=== PATIENT | female | born 1995 ===

== ENCOUNTER 2017-03-29 22:29 | Inpatient (IN) ==
[2017-03-29 23:40] LABS: Basophils % 0.2 % (0.0-0.8); Eosinophils # 0.1 10*3/uL (0.0-0.87); Eosinophils % 0.9 % (0.00-10.9); Hematocrit 33.2 VOL% (35.7-47.0); Hemoglobin 11.1 GM/DL (12.0-16.0); Immature Granulocytes % 0.3 %; Immature Granulocytes Absolute 0.03 #; Lymphocytes # 1.3 10*3/uL (1.4-4.0); Mean Corpuscular HGB Conc 33.4 GM/DL (32-36); Mean Corpuscular Hemoglobin 28 PG (27-34); Mean Platelet Volume 11.7 FL (9.6-12.0); Monocytes # 0.5 10*3/uL (0.11-0.8); Monocytes % 4.9 % (1.7-12.7); Neutrophils # 8.9 10*3/uL (1.4-7.4); Neutrophils % 81.7 % (38.7-73.9); Platelet Count 251 T/CUMM (130-400); Red Cell Distribution Width 13.1 % (9.3-17.3); White Blood Count 10.9 T/CUMM (4-12)
[2017-03-30] MEDS ORDERED: ceFAZolin 1,000 MG VIAL ONE (03:54)
[2017-03-30] MEDS ORDERED: SUGAMMADEX 200 MG/2 ML VIAL IV ONE (04:29)
[2017-03-30] MEDS ORDERED: TISSUE ADHESIVE 1 EACH APPLICATOR TOP ONE (04:48)
[2017-03-30] MEDS ORDERED: ONDANSETRON 4 MG/2 ML VIAL IV PRN ×2 (05:05→05:28)
[2017-03-30] MEDS ORDERED: BISACODYL 10 MG SUPP RECTAL PRN (05:05)
[2017-03-30] MEDS ORDERED: BENZOCAINE/MENTHOL LOZENGE 18/BOX PO PRN (05:05)
[2017-03-30] MEDS ORDERED: PROPOFOL 200 MG/20 ML VIAL IV ONE (05:19)
[2017-03-30] MEDS ORDERED: SEVOFLURANE 1 UNIT/15 MINUTE INH ONE (05:19)
[2017-03-30] MEDS ORDERED: KETOROLAC 30 MG/1 ML VIAL ONE (05:20)
[2017-03-30] MEDS ORDERED: ACETAMINOPHEN 1,000 MG/100 ML VIAL IV ONE (05:20)
[2017-03-30] MEDS ORDERED: fentaNYL 100 MCG/2 ML VIAL ONE ×2 (05:20)
[2017-03-30] MEDS ORDERED: MIDAZOLAM 2 MG/2 ML VIAL ONE (05:20)
[2017-03-30] MEDS ORDERED: ROCURONIUM 100 MG/10 ML VIAL IV ONE (05:21)
[2017-03-30] MEDS ORDERED: LACTATED RINGERS 1,000 ML IV SCH (05:30)
[2017-03-30 05:31] LABS: Apearance,Urine Slightly Hazy (Clear); Bacteria,Urine Occasional /HPF (Few); Bilirubin,Urine Negative (Negative); Blood, Urine Negative (Negative); Glucose,Urine (UA) Negative (Negative); Ketones,Urine Negative (Negative); Mucus,Urine Occasional /LPF (Occasional); Nitrite,Urine Positive (Negative); Protein,Urine Negative; RBC,Urine 1 /HPF (0-4); Urine Color Yellow (Yellow); Urine Specific Gravity 1.019 (1.001-1.035); Urine Urobilinogen < 2.0 EU/DL (0.2-1.0); WBC,Urine 1 /HPF (0-6)
[2017-03-30] MEDS ORDERED: HYDROmorphone 2 MG/1 ML VIAL ONE (05:35)
[2017-03-30] MEDS ORDERED: ONDANSETRON 4 MG/2 ML VIAL ONE (05:35)
[2017-03-30] MEDS: HYDROmorphone 2 MG/1 ML VIAL IV PRN ×3 (05:37→05:57)
[2017-03-30] MEDS ORDERED: INFLUENZA VIRUS VACCINE 0.5 ML SYRINGE IM ONE (07:09)
[2017-03-30] MEDS: LACTATED RINGERS 1,000 ML IV SCH ×2 (09:45→14:38)
[2017-03-30 12:03] LABS: Hematocrit 28.2 VOL% (35.7-47.0); Hemoglobin 9.6 GM/DL (12.0-16.0)
[2017-03-30] MEDS: DOCUSATE SODIUM 100 MG CAPSULE PO PRN (19:29)
[2017-03-30] MEDS: FERROUS SULFATE 325 MG TABLET PO SCH (22:29)
[2017-03-31 06:28] LABS: Basophils % 0.4 % (0.0-0.8); Eosinophils # 0.1 10*3/uL (0.0-0.87); Hematocrit 28.6 VOL% (35.7-47.0); Hemoglobin 9.4 GM/DL (12.0-16.0); Immature Granulocytes % 0.4 %; Immature Granulocytes Absolute 0.03 #; Lymphocytes % 28.4 % (21.3-54.2); Mean Corpuscular HGB Conc 32.9 GM/DL (32-36); Mean Corpuscular Hemoglobin 28 PG (27-34); Mean Corpuscular Volume 84.1 FL (87-102); Mean Platelet Volume 11.5 FL (9.6-12.0); Monocytes # 0.5 10*3/uL (0.11-0.8); Monocytes % 6.9 % (1.7-12.7); Neutrophils # 4.4 10*3/uL (1.4-7.4); Neutrophils % 61.9 % (38.7-73.9); Platelet Count 188 T/CUMM (130-400); Red Cell Distribution Width 13.3 % (9.3-17.3); White Blood Count 7.1 T/CUMM (4-12)
[2017-03-31] MEDS: FERROUS SULFATE 325 MG TABLET PO SCH ×2 (09:52→21:23)
[2017-03-31] MEDS: DOCUSATE SODIUM 100 MG CAPSULE PO PRN ×2 (09:53→21:23)
[2017-03-31] MEDS: MAGNESIUM HYDROXIDE SUSP 30 ML UDCUP PO PRN ×2 (09:53→21:22)
[2017-03-31] MEDS: SIMETHICONE CHEW 80 MG TABLET PO PRN ×2 (09:53→21:23)
[2017-03-31] MEDS: IBUPROFEN 800 MG TABLET PO PRN ×2 (09:58→18:07)
[2017-03-31 19:32] LABS: Basophils % 0.3 % (0.0-0.8); Eosinophils # 0.2 10*3/uL (0.0-0.87); Hematocrit 29.7 VOL% (35.7-47.0); Hemoglobin 9.8 GM/DL (12.0-16.0); Immature Granulocytes % 0.5 %; Immature Granulocytes Absolute 0.04 #; Lymphocytes # 1.5 10*3/uL (1.4-4.0); Lymphocytes % 18.6 % (21.3-54.2); Mean Corpuscular Hemoglobin 28 PG (27-34); Mean Corpuscular Volume 83.7 FL (87-102); Mean Platelet Volume 12.1 FL (9.6-12.0); Monocytes # 0.5 10*3/uL (0.11-0.8); Monocytes % 6.3 % (1.7-12.7); Neutrophils # 5.7 10*3/uL (1.4-7.4); Neutrophils % 72.3 % (38.7-73.9); Platelet Count 209 T/CUMM (130-400); Red Blood Count 3.55 MC/CUMM (3.8-5.5); Red Cell Distribution Width 13.2 % (9.3-17.3); White Blood Count 7.8 T/CUMM (4-12)
[2017-04-01] MEDS: IBUPROFEN 800 MG TABLET PO PRN (06:10)
[2017-04-01 07:58] VITALS: BP 105/60
[2017-04-01] MEDS: FERROUS SULFATE 325 MG TABLET PO SCH (10:02)
== END 2017-04-01 10:35 | disposition home or self-care (01) | DRG 777 ==
LOC: EDUNIT# → EDBD → N.ED 22:29 → N.EDINP 03-30 02:39 → N.OB 03-30 03:25
PROVIDERS: ADMIT Obstetrics & Gynecology; ATTEND Obstetrics & Gynecology